=== PATIENT | female | born 1995 | race Caucasian/White ===

== ENCOUNTER 2021-04-15 19:12 | Emergency (ER) | payer SELFPAY | END 2021-04-15 20:30 | disposition home or self-care (01) | LOC: FER 19:12 | DX: S00.03XA Contusion of scalp, initial encounter (principal); F07.81 Postconcussional syndrome; W17.89XA Other fall from one level to another, initial encounter; Y92.009 Unspecified place in unspecified non-institutional (private) residence as the place of occurrence of the external cause | CPT/HCPCS: 70450 ==